=== PATIENT | female | born 1955 | race Caucasian/White ===

== ENCOUNTER → 2017-07-26 | Outpatient (CLI) | payer BC ==
[~2017-07-26] MED LIST: CALC500C70 PO; IBUP1CAP9
--- NOTE | 2017-07-26 09:31 | DIAGNOSTIC IMAGING REPORT ---
ULTRASOUND EXAM AAA SCREEN CLINICAL HISTORY: R09.89 Abdominal bruit COMPARISON STUDY: None. FINDINGS: The proximal abdominal aorta measures 2.3 x 2.2 cm, mid aorta 2.1 x 1.9 cm, distal aorta 2.2 x 1.9 cm. Common iliac arteries measure 1.5 cm on the right and 1.4 cm on the left. IMPRESSION: No evidence for abdominal aortic aneurysm. Electronically signed by: Tim Olivarez M.D. 07/26/2017 9:30 AM Dictated Date/Time: 07/26/2017 9:28 AM
== END | disposition home or self-care (01) ==
LOC: C.ULTR 09:04
PROVIDERS: ATTEND Physician Assistant
DX: R09.89 Other specified symptoms and signs involving the circulatory and respiratory systems (principal)

== ENCOUNTER → 2017-08-23 | Outpatient (CLI) | payer BC | END | disposition home or self-care (01) | LOC: C.MAMM 08:20 | PROVIDERS: ATTEND Physician Assistant | DX: M85.80 Other specified disorders of bone density and structure, unspecified site (principal) ==

== ENCOUNTER → 2017-09-15 | Outpatient (CLI) | payer OTHER ==
--- NOTE | 2017-09-15 14:38 | MAMMOGRAPHY REPORT ---
BILATERAL DIGITAL SCREENING MAMMOGRAM TOMOSYNTHESIS WITH CAD: 09/15/2017 TECHNIQUE: Breast tomosynthesis in addition to standard 2D mammography was performed. Current study was also evaluated with a Computer Aided Detection (CAD) system. COMPARISON: Comparison is made to exams dated: 10/23/2013 mammogram, 10/18/2012 mammogram, 10/14/2011 ma mmogram, 10/13/2010 mammogram, 10/03/2009 mammogram - [facility], and 10/02/2008. BREAST COMPOSITION: There are scattered areas of fibroglandular density in both breasts. FINDINGS: No suspicious masses, calcifications, or areas of architectural distortion are noted in ei ther breast. There has been no significant interval change compared to prior exams. IMPRESSION: ACR BI-RADS CATEGORY 1: NEGATIVE There is no mammographic evidence of malignancy. A 1 year screening mammogram is recommended. The pa tient will receive written notification of the results. Approximately 10% of breast cancers are not detected with mammography. A negative mammographic report should not delay biopsy if a clinically suggestive mass is present. Dodie Peters M.D. ah/:09/15/2017 07:49:53 Special Education Para Professional: Angie CHO(R)(M), [facility] letter sent: Normal 1/2 BI-RADS Code: ACR BI-RADS Category 1: Negative
== END | disposition home or self-care (01) ==
LOC: C.MAMM 07:26
PROVIDERS: ATTEND Internal Medicine
DX: Z12.31 Encounter for screening mammogram for malignant neoplasm of breast (principal)